=== PATIENT | female | born 1990 | race American Indian/Alaskan Native ===

== ENCOUNTER 2017-03-16 15:30 | Emergency (ER) | payer OTHER ==
[2017-03-16 15:42] VITALS: BP 112/74
--- NOTE | 2017-03-16 16:26 | ED Physician Documentation ---
PD HPI HEENT - Stated complaint Stated Complaint: THROAT SWELLING - Chief complaint Chief Complaint: Heent - History obtained from History obtained from: Patient - History of Present Illness Timing - onset: Yesterday Timing - duration: Days (2) Timing - details: Gradual onset Pain level max: 4 Pain level now: 3 Location: Other (submandibular) Improves: Nothing Worsens: Other (palpation) Associated symptoms: No: Fever, Congestion, Rhinorrhea, Trismus, Unable to swallow, Swollen nodes, Facial swelling, Headache, Cough Similar symptoms before: Has not had sx before - Additional information Additional information: Patient states that she noted submandibular swelling in the midline yesterday and mild tenderness. Has become worsened today. No fevers. No redness. 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 : None HEENT: None Psych: None, Depression Musculoskeletal: None Derm: None - Past Surgical History Past Surgical History: Yes General: Cholecystectomy HEENT: Other - Present Medications Home Medications: Ambulatory Orders Medication Instructions Recorded Confirmed Amox/Clav 875/125 [Augmentin] 1 each PO Q12H #20 tablet 03/16/17 Sertraline [Zoloft] 50 mg PO DAILY 03/16/17 03/16/17 - Allergies Allergies/Adverse Reactions: Allergies Allergy/AdvReac Type Severity Reaction Status Date / Time No Known Drug Allergies Allergy Verified 03/16/17 15:42 - Social History Does the pt smoke?: No Smoking Status: Former smoker Does the pt drink ETOH?: Yes Does the pt have substance abuse?: No - Immunizations Immunizations are current?: Yes - POLST Patient has POLST: No PD ED PE NORMAL - Vitals Vital signs reviewed: Yes - General General: Alert and oriented X 3, No acute distress - HEENT HEENT: Ears normal, Moist mucous membranes, Pharynx benign, Dentition benign - Neck Neck: Supple, no meningeal sign, No adenopathy, Other (0.5cm indurated swelling , moves with the tongue. normal skin. Mild TTP. ) - Cardiac Cardiac: RRR - Respiratory Respiratory: No respiratory distress, Clear bilaterally - Derm Derm: Warm and dry, No rash - Neuro Neuro: Alert and oriented X 3 - Psych Psych: Normal mood, Normal affect Results - Vitals Vitals: Vital Signs - 24 hr 03/16/17 15:40 Temperature 36.1 C L Heart Rate 77 Respiratory 14 Rate Blood Pressure 112/74 O2 Saturation 100 Oxygen O2 Source Room air - Labs Labs: Laboratory Tests 03/16/17 Unknown Group A Strep Rapid Negative PD MEDICAL DECISION MAKING - ED course Complexity details: considered differential, d/w patient ED course: Bedside ultrasound reveals what appears to be a thyroglossal duct cyst, 0.3 x 0.3 cm. No drainable abscess. No overlying skin changes. Will place on antibiotics and follow-up with ENT. She is well-appearing, nontoxic. Afebrile. She will return if she worsens. Patient counseled regarding signs and symptoms for which I believe and urgent re-evaluation would be necessary. Patient with good understanding of and agreement to plan and is comfortable going home at this time This document was made in part using voice recognition software. While efforts are made to proofread this document, sound alike and grammatical errors may occur. Departure - Departure Disposition: 01 Home, Self Care Clinical Impression: Thyroglossal duct infection Condition: Good Instructions: Thyroglossal Cyst Follow-Up: [facility] [Provider Group] [facility] [Provider Group] - Within 1 week Prescriptions: Amox/Clav 875/125 [Augmentin] 1 each PO Q12H #20 tablet Comments: Take all antibiotics until gone. You should follow-up with ENT to discuss removal of the thyroglossal duct cyst. You may need a referral from your primary care provider. Return if you worsen Discharge Date/Time: 03/16/17 16:30
[2017-03-16 16:33] LABS: RAPID STREP SCREEN REAGENT QC YELLOW (YELLOW)
== END 2017-03-16 16:30 | disposition home or self-care (01) ==
LOC: ED 15:30
DX: K14.8 Other diseases of tongue (principal); Z87.891 Personal history of nicotine dependence
CPT/HCPCS: 87070; 87430; 99282; 99283

== ENCOUNTER 2017-04-16 12:02 | Outpatient (CLI) | payer OTHER ==
[2017-04-16] MEDS ORDERED: IOPAMIDOL-300 100 ML VIAL ONE (12:10)
[2017-04-16] MEDS ORDERED: IOPAMIDOL-300 100 ML VIAL IVP ONE (12:27)
--- NOTE | 2017-04-16 12:57 | CT Report ---
CT NECK WITH CONTRAST: 04/16/2017 CLINICAL INDICATION: Palpable abnormality anterior midline neck, question thyroglossal duct cyst. TECHNIQUE: Axial CT images of the neck were obtained with 80 mL Isovue-300 intravenously. No previo us CT is available for comparison. In accordance with CT protocol optimization, one or more of the following dose reduction techniques w ere utilized for this exam: automated exposure control, adjustment of mA and/or KV based on patient size, or use of iterative reconstructive technique. FINDINGS: A marker was placed at the site of palpable abnormality identified by the patient. The vascular structures enhance normally. The soft tissues of the nasopharynx, oropharynx, and hypop harynx appear unremarkable. The salivary glands and thyroid gland are unremarkable. A small subment al lymph node is noted in the region of the palpable abnormality identified by the patient. There is no evidence of a thyroglossal duct cyst. The trachea is widely patent. No adenopathy is present. Osseous structures are unremarkable. Limited evaluation of the lung apices is unremarkable. IMPRESSION: SMALL SUBMENTAL LYMPH NODE IN THE REGION OF THE PALPABLE ABNORMALITY IDENTIFIED BY THE P ATIENT. NO EVIDENCE OF A THYROGLOSSAL DUCT CYST OR OTHER ABNORMAL MASS IN THE MIDLINE NECK. JOB #: [id number] EXT JOB #:[id number]
== END 2017-04-16 12:03 | disposition home or self-care (01) ==
LOC: DI 12:02
PROVIDERS: ATTEND Otolaryngology Facial Plastic Surgery
DX: Q89.2 Congenital malformations of other endocrine glands (principal)
CPT/HCPCS: 70491; Q9967